=== PATIENT | female | born 1945 | race Caucasian/White ===

== ENCOUNTER 2016-09-23 08:01 | Day surgery (SDC) | payer BC ==
[~2016-09-23] VITALS: Ht 167.6 cm; Wt 63.6 kg
[~2016-09-23 08:01] MED LIST: ALBU6.7H INH; CYMB60CA PO; LYRI50CA2 PO; OMEP20TA PO; SERT100 PO; TRAM50 PO
[2016-09-23 08:18] VITALS: BP 117/85; PULSE 78; RESP 20; TEMP 97.7; O2SAT 91
[2016-09-23] MEDS ORDERED: ROSU5 PO (08:31)
[2016-09-23] MEDS ORDERED: MELA1CAP (08:31)
[2016-09-23] MEDS ORDERED: GING500C2 (08:31)
[2016-09-23] MEDS ORDERED: VENTAER INH (08:31)
[2016-09-23] MEDS ORDERED: ADVA250A INH (08:31)
[2016-09-23] MEDS ORDERED: DOXY0.02 (08:31)
[2016-09-23] MEDS ORDERED: ASPI-110 PO (08:31)
[2016-09-23] MEDS ORDERED: MULT1TAB84 PO (08:31)
[2016-09-23] MEDS ORDERED: SERT-129 PO (08:31)
[2016-09-23] MEDS ORDERED: ZANT150T2 PO (08:31)
[2016-09-23] MEDS ORDERED: SERT-132 PO (08:31)
[2016-09-23] MEDS ORDERED: CHOL1TAB42 (08:31)
[2016-09-23] MEDS ORDERED: LYRI50CA PO (08:31)
[2016-09-23] MEDS ORDERED: ALPHTAB (08:31)
[2016-09-23] MEDS ORDERED: AMIT10TA6 PO (08:31)
[2016-09-23] MEDS ORDERED: VITA60003 (08:31)
[2016-09-23] MEDS ORDERED: LIDOCAINE 1%/EPINEPHrine 1:100,000 SOLN 20 ML VIAL ONE (08:52)
[2016-09-23] MEDS ORDERED: MIDAZOLAM HCL 5 MG/5 ML VIAL ONE (09:26)
[2016-09-23] MEDS ORDERED: fentaNYL CITRATE 250 MCG/5 ML AMP ONE (09:26)
[2016-09-23 10:10] VITALS: BP 123/71; PULSE 78; RESP 18; RESP 20; TEMP 97.5; O2SAT 94
[2016-09-23 10:25] VITALS: BP 137/78; PULSE 81; RESP 16; O2SAT 91
--- NOTE | 2016-09-23 10:39 | RADRPT ---
EXAM DATE/TIME: 09/23/2016 09:45 [place] COMPARISON: No previous studies available for comparison. INDICATIONS : Evaluate right lung. RADIATION DOSE: 7.67 CTDIvol (mGy) MEDICAL HISTORY : Chronic obstructive pulmonary disease. SURGICAL HISTORY : None. ENCOUNTER: Initial ACUITY: 1 day PAIN SCALE: 0/10 LOCATION: chest TECHNIQUE: Volumetric scanning of the chest was performed. Using automated exposure control and adjustment of t he mA and/or kV according to patient size, radiation dose was kept as low as reasonably achievable to obtain optimal diagnostic quality images. FINDINGS: Patient came in for biopsy of a mass in the left upper lobe. There has been significant improvement when compared to the PET CT from [facility]. No other suspicious lesions are seen in either the right or the left lung. Because of the improvement I elected to not do biopsy of the mass. Serial follow up is suggested. This may not disappear entirely given the nature of what is probably scar. CONCLUSION: 1. Irregularly shaped plate-like mass in the upper lobe on the right is resolving. Biopsy was not performed. Sumanth Thompson MD FACR on September 23, 2016 at 10:28 Board Certified Radiologist. This report was verified electronically.
[2016-09-23 10:40] VITALS: BP 134/75; PULSE 70; RESP 18; O2SAT 92
[2016-09-23] MEDS ORDERED: SODIUM CHLOR 0.9% 1000 ML IV SCH (11:00)
== END 2016-09-23 11:10 | disposition home or self-care (01) ==
LOC: HRAD 08:01 → HRIP 08:04 → HRAD 11:10
PROVIDERS: ATTEND Internal Medicine Hematology & Oncology
DX: R91.8 Other nonspecific abnormal finding of lung field (principal); J44.9 Chronic obstructive pulmonary disease, unspecified
CPT/HCPCS: 71250; J2250; J3010; J7030

== ENCOUNTER → 2016-10-09 | Day surgery (SDC) | payer BC ==
[~2016-10-09] MED LIST changes: +ADVA250A INH; -ALBU6.7H INH; +ALPHTAB; +AMIT10TA6 PO; +ASPI-110 PO; +CHOL1TAB42; -CYMB60CA PO; +DOXY0.02; +GING500C2; +LACTATED RINGER'S 1000 ML INJ 1,000 ML ONE; +LYRI50CA PO; -LYRI50CA2 PO; +MELA1CAP; +MULT1TAB84 PO; -OMEP20TA PO; +PROPOFOL 500 MG/50 ML BTL IV ONE; +ROSU5 PO; +SERT-129 PO; +SERT-132 PO; -SERT100 PO; -TRAM50 PO; +VENTAER INH; +VITA60003; +ZANT150T2 PO
--- NOTE | 2016-10-09 13:17 | GIPROC ---
[facility] [address] [facility], [id number] COLONOSCOPY PROCEDURE REPORT EXAM DATE: 10/09/2016 PATIENT NAME: June Capellan MR #: [id number] BIRTHDATE: 1945 ENDOSCOPIST: Jarad Bernard MD ORDER #: [id number] BACTERIOLOGIST DAIRY: Sonja Pires RN STATUS: outpatient INDICATIONS: The patient is a 71 yr old female here for a colonoscopy due to abdominal pain PROCEDURE PERFORMED: Colonoscopy, diagnostic MEDICATIONS: None and Per Anesthesia. PREP QUALITY: excellent ESTIMATED BLOOD LOSS: None CONSENT: The patient understands the risks and benefits of the procedure and understands that these risks include, but are not limited to: sedation, allergic reaction, infection, perforation and/or bleeding. Alternative means of evaluation and treatment include, among others: physical exam, x-rays, and/or surgical intervention. The patient elects to proceed with this endoscopic procedure. medical equipment was checked for proper function. Hand hygiene and appropriate measures for infection prevention was taken. After the risks, benefits and alternatives of the procedure were thoroughly explained, Informed consent was verified, confirmed and timeout was successfully executed by the treatment team. A digital exam revealed no abnormalities of the rectum The EC-[id number] ([id number]) endoscope was introduced through the anus and advanced to the cecum, which was identified by both the appendix and ileocecal valve. The instrument was then slowly withdrawn as the colon was fully examined. COLON FINDINGS: Mild diverticulosis was noted in the sigmoid colon. The colon mucosa was otherwise normal. Retroflexed views revealed no abnormalities The scope was then completely withdrawn from the patient and the procedure terminated. PROCEDURE WITHDRAWAL TIME:11.5minutes ADVERSE EVENTS: There were no complications. IMPRESSIONS: 1. Mild diverticulosis was noted in the sigmoid colon 2. The colon mucosa was otherwise normal 3. Retroflexed views revealed no abnormalities 4. Revealed no abnormalities of the rectum RECOMMENDATIONS: 1. High fiber diet. Avoid nuts, seeds, and popcorn. Chew your food well. 2. Follow-up: [facility] Clinic PRN 3. Yearly hemoccult RECALL: Return 10 years Colonoscopy Jarad Bernard MD eSigned: Jarad Bernard MD 10/09/2016 1:17 PM cc: Manjula Llanos M.D and Mike Leach [facility]
== END | disposition home or self-care (01) ==
LOC: ESDC 10:45
PROVIDERS: ATTEND Internal Medicine Gastroenterology
DX: R10.9 Unspecified abdominal pain (principal); K57.90 Diverticulosis of intestine, part unspecified, without perforation or abscess without bleeding
CPT/HCPCS: 00810; 45378; J7120